=== PATIENT | male | born 1990 | race Caucasian/White ===

== ENCOUNTER 2020-01-30 12:59 | Emergency (ER) | payer SELFPAY ==
[~2020-01-30] VITALS: Ht 172.7 cm; Wt 54.5 kg
[2020-01-30] MEDS ORDERED: AMBIEN5 M1 (13:54)
[2020-01-30] MEDS ORDERED: XANAX0.25 M1 (13:54)
[2020-01-30 15:01] VITALS: BP 137/65
== END 2020-01-30 15:15 | disposition home or self-care (01) ==
LOC: ED 12:59
DX: M25.512 Pain in left shoulder (principal); M54.2 Cervicalgia; M54.9 Dorsalgia, unspecified; F32.9 Major depressive disorder, single episode, unspecified; F41.9 Anxiety disorder, unspecified; F17.210 Nicotine dependence, cigarettes, uncomplicated; Z88.2 Allergy status to sulfonamides; Z88.8 Allergy status to other drugs, medicaments and biological substances; Z79.891 Long term (current) use of opiate analgesic; Z79.899 Other long term (current) drug therapy; W13.2XXA Fall from, out of or through roof, initial encounter; Y92.009 Unspecified place in unspecified non-institutional (private) residence as the place of occurrence of the external cause; Y99.0 Civilian activity done for income or pay

== ENCOUNTER 2020-03-20 03:20 | Emergency (ER) | payer SELFPAY ==
[~2020-03-20 03:20] MED LIST: AMBIEN5 M1; XANAX0.25 M1
[2020-03-20] MEDS ORDERED: XANAX 1MG1 MG PO (03:33)
[2020-03-20 04:23] LABS: HEMATOCRIT 51.4 % (42.0-52.0); HEMOGLOBIN 17.8 g/dL (13.5-18.0); LYMPH# 1.9 (1.50-4.00); MEAN CELL VOLUME 88 fl (78-100); MEAN CORPUSCULAR HEMOGLOBIN 31 pg (27-31); MEAN CORPUSCULAR HGB CONC 35 g/dL (33-37); MEAN PLATELET VOLUME 9.3 fl (7.4-10.4); MONO # 0.8 (0.20-0.80); PLATELET COUNT 327 K/mm3 (130-400); RED BLOOD COUNT 5.83 M/mm3 (4.20-5.60); RED CELL DISTRIBUTION WIDTH 13.8 % (11.5-14.5); WHITE BLOOD COUNT 12.5 K/mm3 (4.8-10.8)
[2020-03-20 04:28] LABS: NEU # 9.8 (1.40-6.50)
[2020-03-20 04:37] LABS: POTASSIUM 4.1 mmol/L (3.5-5.1)
[2020-03-20 04:38] LABS: CALCIUM 9.8 mg/dL (8.3-10.5)
[2020-03-20 04:39] LABS: TOTAL PROTEIN 8.6 g/dL (6.4-8.3)
[2020-03-20 04:41] LABS: TOTAL BILIRUBIN 1.1 mg/dL (0.2-1.2)
[2020-03-20 04:42] LABS: URINE APPEARANCE CLOUDY; URINE BILIRUBIN NEGATIVE (NEGATIVE); URINE BLOOD NEGATIVE (NEGATIVE); URINE COLOR AMBER; URINE GLUCOSE NEGATIVE (NEGATIVE); URINE KETONE NEGATIVE (NEGATIVE); URINE LEUKOCYTE ESTERASE NEGATIVE (NEGATIVE); URINE NITRATE NEGATIVE (NEGATIVE); URINE PROTEIN(semi-quant) TRACE mg/dL (NEGATIVE); URINE UROBILINOGEN NORMAL (NORMAL)
[2020-03-20] MEDS ORDERED: ZOFRAN ODT4 MG PO (07:03)
[2020-03-20] MEDS ORDERED: NORCO 325 MG-51 TA1 PO (07:03)
[2020-03-20 07:15] VITALS: BP 112/86
== END 2020-03-20 07:20 | disposition home or self-care (01) ==
LOC: ED 03:20
PROVIDERS: Family Medicine
DX: K52.9 Noninfective gastroenteritis and colitis, unspecified (principal); F41.9 Anxiety disorder, unspecified; F32.9 Major depressive disorder, single episode, unspecified; F17.200 Nicotine dependence, unspecified, uncomplicated; Z88.5 Allergy status to narcotic agent; Z88.6 Allergy status to analgesic agent; Z88.8 Allergy status to other drugs, medicaments and biological substances
CPT/HCPCS: J0696; J2060; J2270; J3490; J7030; Q9967

== ENCOUNTER 2020-04-01 19:49 | Emergency (ER) | payer SELFPAY ==
[~2020-04-01 19:49] MED LIST changes: +NORCO 325 MG-51 TA1 PO; +XANAX 1MG1 MG PO; +ZOFRAN ODT4 MG PO
[2020-04-01 21:07] LABS: HEMATOCRIT 46.6 % (42.0-52.0); MEAN CELL VOLUME 89 fl (78-100); MEAN CORPUSCULAR HEMOGLOBIN 31 pg (27-31); MEAN CORPUSCULAR HGB CONC 34 g/dL (33-37); MEAN PLATELET VOLUME 9.4 fl (7.4-10.4); PLATELET COUNT 250 K/mm3 (130-400); RED BLOOD COUNT 5.22 M/mm3 (4.20-5.60); RED CELL DISTRIBUTION WIDTH 13.6 % (11.5-14.5); WHITE BLOOD COUNT 11.7 K/mm3 (4.8-10.8)
[2020-04-01 21:10] LABS: LYMPHOCYTE 14 % (20-51); MONOCYTE 7 % (3-10); NEUTROPHILS 78 % (42-75)
[2020-04-01 21:14] LABS: URINE APPEARANCE CLEAR; URINE BILIRUBIN NEGATIVE (NEGATIVE); URINE BLOOD NEGATIVE (NEGATIVE); URINE COLOR YELLOW; URINE GLUCOSE NEGATIVE (NEGATIVE); URINE KETONE 1+ (NEGATIVE); URINE LEUKOCYTE ESTERASE NEGATIVE (NEGATIVE); URINE NITRATE NEGATIVE (NEGATIVE); URINE PROTEIN(semi-quant) 1+ mg/dL (NEGATIVE); URINE UROBILINOGEN NORMAL (NORMAL); URINE WBC 0-1 /hpf (0-3)
[2020-04-01 21:17] LABS: ALBUMIN 4.5 g/dL (3.5-5.0); POTASSIUM 3.8 mmol/L (3.5-5.1)
[2020-04-01 21:19] LABS: CALCIUM 9.1 mg/dL (8.3-10.5)
[2020-04-01 21:20] LABS: TOTAL PROTEIN 7.2 g/dL (6.4-8.3)
[2020-04-01 21:22] LABS: TOTAL BILIRUBIN 0.6 mg/dL (0.2-1.2)
[2020-04-01 22:35] VITALS: BP 135/98
== END 2020-04-01 22:35 | disposition home or self-care (01) ==
LOC: ED 19:49
PROVIDERS: Nurse Practitioner Family
DX: R10.84 Generalized abdominal pain (principal); F41.9 Anxiety disorder, unspecified; F13.10 Sedative, hypnotic or anxiolytic abuse, uncomplicated; F12.10 Cannabis abuse, uncomplicated; F17.200 Nicotine dependence, unspecified, uncomplicated; Z88.5 Allergy status to narcotic agent; Z88.6 Allergy status to analgesic agent; Z88.8 Allergy status to other drugs, medicaments and biological substances
CPT/HCPCS: J1885; J2060; J2550; J7030

== ENCOUNTER 2020-04-11 08:41 | Emergency (ER) | payer SELFPAY ==
[2020-04-11 08:49] VITALS: BP 138/103
[2020-04-11 10:40] LABS: URINE COLOR DK YELLOW
[2020-04-11 10:41] LABS: URINE APPEARANCE HAZY; URINE BILIRUBIN NEGATIVE (NEGATIVE); URINE BLOOD TRACE (NEGATIVE); URINE GLUCOSE NEGATIVE (NEGATIVE); URINE KETONE 1+ (NEGATIVE); URINE LEUKOCYTE ESTERASE TRACE (NEGATIVE); URINE NITRATE NEGATIVE (NEGATIVE); URINE PROTEIN(semi-quant) TRACE mg/dL (NEGATIVE); URINE UROBILINOGEN NORMAL (NORMAL)
[2020-04-11 10:42] LABS: URINE MUCUS PRESENT (NOT PRESENT)
[2020-04-11] MEDS ORDERED: PHENERGAN 25 TA25 MG PO (10:55)
== END 2020-04-11 11:33 | disposition home or self-care (01) ==
LOC: ED 08:41
PROVIDERS: Family Medicine
DX: R10.9 Unspecified abdominal pain (principal); F19.10 Other psychoactive substance abuse, uncomplicated; F41.9 Anxiety disorder, unspecified; F32.9 Major depressive disorder, single episode, unspecified; R82.81 Pyuria; Z88.5 Allergy status to narcotic agent; Z88.6 Allergy status to analgesic agent; Z88.8 Allergy status to other drugs, medicaments and biological substances

== ENCOUNTER 2020-08-15 03:44 | Emergency (ER) | payer SELFPAY ==
[~2020-08-15 03:44] MED LIST changes: +PHENERGAN 25 TA25 MG PO
[2020-08-15] MEDS ORDERED: ZOFRAN ODT4 MG PO ×2 (03:54→13:52)
[2020-08-15 05:03] LABS: BASO # 0.03 (0.02-0.10); EOS # 0.01 (0.04-0.40); EOS % 0.1 % (0.0-4.0); HEMATOCRIT 51.3 % (42.0-52.0); HEMOGLOBIN 17.9 g/dL (13.5-18.0); LYMPH# 1.56 (1.50-4.00); MEAN CELL VOLUME 91 fl (78-100); MEAN CORPUSCULAR HEMOGLOBIN 32 pg (27-31); MEAN CORPUSCULAR HGB CONC 35 g/dL (33-37); MEAN PLATELET VOLUME 9.2 fl (7.4-10.4); MONO # 0.77 (0.20-0.80); NEU # 10.96 (1.40-6.50); PLATELET COUNT 285 K/mm3 (130-400); RED BLOOD COUNT 5.67 M/mm3 (4.20-5.60); RED CELL DISTRIBUTION WIDTH 12.7 % (11.5-14.5); WHITE BLOOD COUNT 13.4 K/mm3 (4.8-10.8)
[2020-08-15 05:10] LABS: ALBUMIN 5.1 g/dL (3.5-5.0); POTASSIUM 3.3 mmol/L (3.5-5.1)
[2020-08-15 05:12] LABS: CALCIUM 10.1 mg/dL (8.3-10.5)
[2020-08-15 05:13] LABS: TOTAL PROTEIN 8.7 g/dL (6.4-8.3)
[2020-08-15 05:15] LABS: TOTAL BILIRUBIN 0.8 mg/dL (0.2-1.2)
[2020-08-15 05:24] LABS: URINE APPEARANCE HAZY; URINE BILIRUBIN NEGATIVE (NEGATIVE); URINE BLOOD TRACE (NEGATIVE); URINE COLOR DK YELLOW; URINE GLUCOSE NEGATIVE (NEGATIVE); URINE KETONE NEGATIVE (NEGATIVE); URINE LEUKOCYTE ESTERASE NEGATIVE (NEGATIVE); URINE NITRATE NEGATIVE (NEGATIVE); URINE PROTEIN(semi-quant) TRACE mg/dL (NEGATIVE); URINE UROBILINOGEN NORMAL (NORMAL)
[2020-08-15 05:25] LABS: URINE MUCUS PRESENT (NOT PRESENT); URINE WBC 0-1 /hpf (0-3)
[2020-08-15 11:07] LABS: GASTROCCULT POSITIVE
[2020-08-15] MEDS ORDERED: NORCO 325 MG-51 TA1 PO (13:52)
[2020-08-15] MEDS ORDERED: PANTOPRAZOLE SO40 MG PO (13:52)
[2020-08-15 14:43] VITALS: BP 102/72
== END 2020-08-15 14:10 | disposition home or self-care (01) ==
LOC: ED 03:44
PROVIDERS: Family Medicine
DX: T39.312A Poisoning by propionic acid derivatives, intentional self-harm, initial encounter (principal); K29.70 Gastritis, unspecified, without bleeding; F41.9 Anxiety disorder, unspecified; F32.9 Major depressive disorder, single episode, unspecified; F17.210 Nicotine dependence, cigarettes, uncomplicated; Z91.14 Patient's other noncompliance with medication regimen
CPT/HCPCS: C9113; J0595; J1885; J2060; J2405; J2550; J3480; J3490; J7030; Q9967

== ENCOUNTER 2020-08-19 13:16 | Emergency (ER) | payer SELFPAY ==
[~2020-08-19 13:16] MED LIST changes: +PANTOPRAZOLE SO40 MG PO
[2020-08-19 13:23] VITALS: BP 136/101
[2020-08-19 14:16] LABS: BASO # 0.03 (0.02-0.10); HEMATOCRIT 48.8 % (42.0-52.0); HEMOGLOBIN 16.5 g/dL (13.5-18.0); LYMPH# 0.84 (1.50-4.00); MEAN CELL VOLUME 91 fl (78-100); MEAN CORPUSCULAR HEMOGLOBIN 31 pg (27-31); MEAN CORPUSCULAR HGB CONC 34 g/dL (33-37); MEAN PLATELET VOLUME 9.4 fl (7.4-10.4); MONO # 0.45 (0.20-0.80); NEU # 9.25 (1.40-6.50); PLATELET COUNT 256 K/mm3 (130-400); RED BLOOD COUNT 5.36 M/mm3 (4.20-5.60); RED CELL DISTRIBUTION WIDTH 12.4 % (11.5-14.5); WHITE BLOOD COUNT 10.6 K/mm3 (4.8-10.8)
[2020-08-19 14:38] LABS: ALBUMIN 4.8 g/dL (3.5-5.0); POTASSIUM 4.3 mmol/L (3.5-5.1); SODIUM 143 mmol/L (136-145)
[2020-08-19 14:39] LABS: CALCIUM 9.7 mg/dL (8.3-10.5)
[2020-08-19 14:41] LABS: GLUCOSE 115 mg/dL (75-110); TOTAL PROTEIN 7.6 g/dL (6.4-8.3)
[2020-08-19 14:42] LABS: CARBON DIOXIDE 21 mmol/L (22-29); TOTAL BILIRUBIN 0.6 mg/dL (0.2-1.2)
[2020-08-19 14:43] LABS: GASTROCCULT NEGATIVE
[2020-08-19 14:46] LABS: AST-SGOT 22 U/L (5-34)
[2020-08-19 14:47] LABS: ALT/SGPT 21 U/L (0-55)
[2020-08-19 14:48] LABS: LIPASE 9 U/L (8-78)
[2020-08-19 14:51] LABS: ALCOHOL IN-HOUSE < 10 mg/dL (<10)
== END 2020-08-19 15:15 | disposition left against medical advice (07) ==
LOC: ED 13:16
PROVIDERS: Nurse Practitioner Family
DX: R10.32 Left lower quadrant pain (principal); R11.2 Nausea with vomiting, unspecified; R51.9 Headache, unspecified; Z88.6 Allergy status to analgesic agent
CPT/HCPCS: J0595; J2405; J7030

== ENCOUNTER 2020-08-25 13:30 | Emergency (ER) | payer SELFPAY ==
[2020-08-25 14:25] LABS: BASO # 0.05 (0.02-0.10); HEMOGLOBIN 16.5 g/dL (13.5-18.0); LYMPH# 1.09 (1.50-4.00); MEAN CELL VOLUME 90 fl (78-100); MEAN CORPUSCULAR HEMOGLOBIN 30 pg (27-31); MEAN CORPUSCULAR HGB CONC 34 g/dL (33-37); MEAN PLATELET VOLUME 9.2 fl (7.4-10.4); MONO # 0.55 (0.20-0.80); NEU # 12.35 (1.40-6.50); PLATELET COUNT 272 K/mm3 (130-400); RED BLOOD COUNT 5.42 M/mm3 (4.20-5.60); RED CELL DISTRIBUTION WIDTH 12.8 % (11.5-14.5); WHITE BLOOD COUNT 14.1 K/mm3 (4.8-10.8)
[2020-08-25 14:34] LABS: ALBUMIN 4.8 g/dL (3.5-5.0); POTASSIUM 3.8 mmol/L (3.5-5.1)
[2020-08-25 14:35] LABS: CALCIUM 10.4 mg/dL (8.3-10.5)
[2020-08-25 14:37] LABS: TOTAL PROTEIN 8.3 g/dL (6.4-8.3)
[2020-08-25 14:38] LABS: TOTAL BILIRUBIN 0.5 mg/dL (0.2-1.2)
[2020-08-25 15:33] LABS: LIPASE 8 U/L (8-78)
[2020-08-25 17:38] LABS: URINE COLOR YELLOW
[2020-08-25 17:39] LABS: URINE APPEARANCE HAZY; URINE BILIRUBIN 2+ (NEGATIVE); URINE BLOOD NEGATIVE (NEGATIVE); URINE GLUCOSE NEGATIVE (NEGATIVE); URINE KETONE 2+ (NEGATIVE); URINE LEUKOCYTE ESTERASE TRACE (NEGATIVE); URINE NITRATE NEGATIVE (NEGATIVE); URINE PROTEIN(semi-quant) 1+ mg/dL (NEGATIVE); URINE UROBILINOGEN NORMAL (NORMAL)
[2020-08-25 17:40] LABS: URINE MUCUS PRESENT (NOT PRESENT)
[2020-08-25] MEDS ORDERED: PROTONIX TR40 M1 PO (17:54)
[2020-08-25] MEDS ORDERED: NORCO 325 MG-51 TA1 PO (17:54)
[2020-08-25] MEDS ORDERED: CARAFATE 1GM1 G PO (17:54)
[2020-08-25] MEDS ORDERED: PEPCID 20MG TAB20 MG PO (17:54)
[2020-08-25] MEDS ORDERED: PHENERGAN 25 TA25 MG PO (17:55)
[2020-08-25 18:08] VITALS: BP 95/51
== END 2020-08-25 18:30 | disposition home or self-care (01) ==
LOC: ED 13:30
PROVIDERS: Physician Assistant
DX: K25.9 Gastric ulcer, unspecified as acute or chronic, without hemorrhage or perforation (principal); Z88.6 Allergy status to analgesic agent; Z88.8 Allergy status to other drugs, medicaments and biological substances
CPT/HCPCS: J2060; J2405; J2550; J3010; J7030; Q9967

== ENCOUNTER 2020-08-28 14:48 | Emergency (ER) | payer SELFPAY ==
[~2020-08-28 14:48] MED LIST changes: +CARAFATE 1GM1 G PO; +PEPCID 20MG TAB20 MG PO; +PROTONIX TR40 M1 PO
[2020-08-28 18:12] LABS: BASO # 0.05 (0.02-0.10); HEMATOCRIT 43.4 % (42.0-52.0); HEMOGLOBIN 15.1 g/dL (13.5-18.0); LYMPH# 0.87 (1.50-4.00); MEAN CELL VOLUME 91 fl (78-100); MEAN CORPUSCULAR HEMOGLOBIN 32 pg (27-31); MEAN CORPUSCULAR HGB CONC 35 g/dL (33-37); MEAN PLATELET VOLUME 8.9 fl (7.4-10.4); MONO # 0.59 (0.20-0.80); NEU # 11.68 (1.40-6.50); PLATELET COUNT 250 K/mm3 (130-400); RED BLOOD COUNT 4.79 M/mm3 (4.20-5.60); RED CELL DISTRIBUTION WIDTH 12.5 % (11.5-14.5); WHITE BLOOD COUNT 13.2 K/mm3 (4.8-10.8)
[2020-08-28 18:21] LABS: ALBUMIN 4.1 g/dL (3.5-5.0)
[2020-08-28 18:22] LABS: POTASSIUM 3.6 mmol/L (3.5-5.1)
[2020-08-28 18:23] LABS: CALCIUM 8.3 mg/dL (8.3-10.5)
[2020-08-28 18:24] LABS: TOTAL PROTEIN 6.8 g/dL (6.4-8.3)
[2020-08-28 18:26] LABS: TOTAL BILIRUBIN 0.5 mg/dL (0.2-1.2)
[2020-08-28 22:55] LABS: URINE APPEARANCE CLOUDY; URINE BILIRUBIN NEGATIVE (NEGATIVE); URINE BLOOD 250 ery/uL (NEGATIVE); URINE COLOR YELLOW; URINE GLUCOSE NEGATIVE (NEGATIVE); URINE KETONE 2+ (NEGATIVE); URINE LEUKOCYTE ESTERASE NEGATIVE (NEGATIVE); URINE MUCUS PRESENT (NOT PRESENT); URINE NITRATE NEGATIVE (NEGATIVE); URINE PROTEIN(semi-quant) NEGATIVE (NEGATIVE); URINE UROBILINOGEN NORMAL (NORMAL)
[2020-08-28] MEDS ORDERED: PERCOCET 325 MG1 TA2 PO (23:21)
[2020-08-28] MEDS ORDERED: ZOFRAN ODT4 MG PO (23:21)
[2020-08-28 23:40] VITALS: BP 104/70
== END 2020-08-28 23:40 | disposition home or self-care (01) ==
LOC: ED 14:48
PROVIDERS: Family Medicine
DX: F41.9 Anxiety disorder, unspecified (principal); K25.9 Gastric ulcer, unspecified as acute or chronic, without hemorrhage or perforation; N20.1 Calculus of ureter; F17.210 Nicotine dependence, cigarettes, uncomplicated; Z88.8 Allergy status to other drugs, medicaments and biological substances; Z79.899 Other long term (current) drug therapy
CPT/HCPCS: C9113; J2060; J2270; J2405; J2550; J7030

== ENCOUNTER 2020-09-02 12:05 | Emergency (ER) | payer SELFPAY ==
[~2020-09-02 12:05] MED LIST changes: +PERCOCET 325 MG1 TA2 PO
[2020-09-02 13:08] LABS: BASO # 0.06 (0.02-0.10); EOS # 0.01 (0.04-0.40); EOS % 0.1 % (0.0-4.0); HEMATOCRIT 52.9 % (42.0-52.0); HEMOGLOBIN 17.6 g/dL (13.5-18.0); LYMPH# 1.91 (1.50-4.00); MEAN CELL VOLUME 92 fl (78-100); MEAN CORPUSCULAR HEMOGLOBIN 31 pg (27-31); MEAN CORPUSCULAR HGB CONC 33 g/dL (33-37); MEAN PLATELET VOLUME 8.9 fl (7.4-10.4); MONO # 0.74 (0.20-0.80); NEU # 10.29 (1.40-6.50); PLATELET COUNT 309 K/mm3 (130-400); RED BLOOD COUNT 5.77 M/mm3 (4.20-5.60); RED CELL DISTRIBUTION WIDTH 12.9 % (11.5-14.5)
[2020-09-02 13:48] LABS: PH-URINE 5.5 (5.0 - 8.0); URINE APPEARANCE HAZY; URINE COLOR YELLOW; URINE GLUCOSE NEGATIVE (NEGATIVE); URINE KETONE 1+ (NEGATIVE); URINE PROTEIN(semi-quant) TRACE mg/dL (NEGATIVE)
[2020-09-02 13:49] LABS: URINE BILIRUBIN NEGATIVE (NEGATIVE); URINE BLOOD TRACE (NEGATIVE); URINE LEUKOCYTE ESTERASE TRACE (NEGATIVE); URINE MUCUS PRESENT (NOT PRESENT); URINE NITRATE NEGATIVE (NEGATIVE); URINE UROBILINOGEN NORMAL (NORMAL); URINE WBC 0-1 /hpf (0-3)
[2020-09-02 16:34] VITALS: BP 131/69
== END 2020-09-02 16:29 | disposition home or self-care (01) ==
LOC: ED 12:05
PROVIDERS: Nurse Practitioner
DX: K25.9 Gastric ulcer, unspecified as acute or chronic, without hemorrhage or perforation (principal); F17.200 Nicotine dependence, unspecified, uncomplicated
CPT/HCPCS: C9113; J0780; J1630; J2060; J2405; J2550; J3360; J7030; Q9967

== ENCOUNTER 2020-09-08 13:52 | Emergency (ER) | payer SELFPAY ==
[2020-09-08 14:29] LABS: BASO # 0.04 (0.02-0.10); EOS # 0.01 (0.04-0.40); EOS % 0.1 % (0.0-4.0); HEMOGLOBIN 16.9 g/dL (13.5-18.0); LYMPH# 1.32 (1.50-4.00); MEAN CELL VOLUME 90 fl (78-100); MEAN CORPUSCULAR HEMOGLOBIN 31 pg (27-31); MEAN CORPUSCULAR HGB CONC 34 g/dL (33-37); MEAN PLATELET VOLUME 8.6 fl (7.4-10.4); MONO # 0.56 (0.20-0.80); NEU # 8.58 (1.40-6.50); PLATELET COUNT 259 K/mm3 (130-400); RED BLOOD COUNT 5.54 M/mm3 (4.20-5.60); RED CELL DISTRIBUTION WIDTH 12.8 % (11.5-14.5); WHITE BLOOD COUNT 10.5 K/mm3 (4.8-10.8)
[2020-09-08 14:43] LABS: ALBUMIN 4.9 g/dL (3.5-5.0)
[2020-09-08 14:46] LABS: TOTAL PROTEIN 8.2 g/dL (6.4-8.3)
[2020-09-08 14:48] LABS: TOTAL BILIRUBIN 0.8 mg/dL (0.2-1.2)
[2020-09-08 15:21] VITALS: BP 148/98
== END 2020-09-08 15:23 | disposition home or self-care (01) ==
LOC: ED 13:52
PROVIDERS: Physician Assistant
DX: R10.9 Unspecified abdominal pain (principal); R11.2 Nausea with vomiting, unspecified; F41.9 Anxiety disorder, unspecified; F17.210 Nicotine dependence, cigarettes, uncomplicated
CPT/HCPCS: J2550

== ENCOUNTER 2021-01-01 02:15 | Emergency (ER) | payer SELFPAY ==
[~2021-01-01] VITALS: Ht 170.2 cm; Wt 54.5 kg
[2021-01-01 02:21] VITALS: BP 139/78
[2021-01-01 03:42] LABS: BASO # 0.06 K/mm3 (0.02-0.10); EOS # 0.01 K/mm3 (0.04-0.40); EOS % 0.1 % (0.0-4.0); HEMATOCRIT 40.8 % (42.0-52.0); HEMOGLOBIN 14.2 g/dL (13.5-18.0); LYMPH# 1.78 K/mm3 (1.50-4.00); MEAN CELL VOLUME 92 fl (78-100); MEAN CORPUSCULAR HEMOGLOBIN 32 pg (27-31); MEAN CORPUSCULAR HGB CONC 35 g/dL (33-37); MEAN PLATELET VOLUME 9.1 fl (7.4-10.4); MONO # 0.88 K/mm3 (0.20-0.80); NEU # 5.12 K/mm3 (1.40-6.50); PLATELET COUNT 236 K/mm3 (130-400); RED BLOOD COUNT 4.43 M/mm3 (4.20-5.60); RED CELL DISTRIBUTION WIDTH 12.6 % (11.5-14.5); WHITE BLOOD COUNT 7.9 K/mm3 (4.8-10.8)
[2021-01-01 03:49] LABS: POTASSIUM 3.7 mmol/L (3.5-5.1); SODIUM 142 mmol/L (136-145)
[2021-01-01 03:50] LABS: CALCIUM 9.1 mg/dL (8.3-10.5)
[2021-01-01 03:51] LABS: GLUCOSE 78 mg/dL (75-110); TOTAL PROTEIN 6.9 g/dL (6.4-8.3)
[2021-01-01 03:52] LABS: CARBON DIOXIDE 23 mmol/L (22-29)
[2021-01-01 03:53] LABS: TOTAL BILIRUBIN 0.7 mg/dL (0.2-1.2)
[2021-01-01 03:56] LABS: AST-SGOT 25 U/L (5-34)
[2021-01-01 03:58] LABS: ALT/SGPT 23 U/L (0-55)
[2021-01-01 04:05] LABS: ACETAMINOPHEN < 1 ug/mL; ALCOHOL IN-HOUSE < 10 mg/dL (<10)
[2021-01-01 04:07] LABS: URINE APPEARANCE CLOUDY; URINE BILIRUBIN NEGATIVE (NEGATIVE); URINE BLOOD TRACE (NEGATIVE); URINE COLOR DK YELLOW; URINE GLUCOSE NEGATIVE (NEGATIVE); URINE KETONE 1+ (NEGATIVE); URINE LEUKOCYTE ESTERASE TRACE (NEGATIVE); URINE NITRATE NEGATIVE (NEGATIVE); URINE PROTEIN(semi-quant) TRACE mg/dL (NEGATIVE); URINE UROBILINOGEN NORMAL (NORMAL)
[2021-01-01 04:08] LABS: URINE MUCUS PRESENT (NOT PRESENT)
== END 2021-01-01 16:17 | disposition hospice, home (50) ==
LOC: ED 02:15
PROVIDERS: Family Medicine
DX: F32.A Depression, unspecified (principal); F17.210 Nicotine dependence, cigarettes, uncomplicated; X83.8XXA Intentional self-harm by other specified means, initial encounter
CPT/HCPCS: J2060

== ENCOUNTER 2021-01-30 21:25 | Emergency (ER) | payer SELFPAY ==
[~2021-01-30] VITALS: Ht 175.3 cm; Wt 54.5 kg
[2021-01-30] MEDS ORDERED: HYDROXYZINE HYD50 M1 PO (21:37)
[2021-01-30] MEDS ORDERED: QUETIAPINE FUM400 MG PO (21:37)
[2021-01-30] MEDS ORDERED: ESZOPICLONE2 MG PO (21:37)
[2021-01-30] MEDS ORDERED: CLINDAMYCIN 300MG PO (22:17)
[2021-01-30] MEDS ORDERED: NORCO 325 MG-51 TA1 PO (22:17)
[2021-01-30 22:31] VITALS: BP 128/80
== END 2021-01-30 22:31 | disposition home or self-care (01) ==
LOC: ED 21:25
DX: K02.9 Dental caries, unspecified (principal); F32.A Depression, unspecified; K05.10 Chronic gingivitis, plaque induced; Z91.51 Personal history of suicidal behavior; Z88.6 Allergy status to analgesic agent; Z79.899 Other long term (current) drug therapy
CPT/HCPCS: J0696

== ENCOUNTER 2021-03-07 00:09 | Emergency (ER) | payer SELFPAY ==
[~2021-03-07] VITALS: Ht 172.7 cm; Wt 59.1 kg
[~2021-03-07 00:09] MED LIST changes: +CLINDAMYCIN 300MG PO; +ESZOPICLONE2 MG PO; +HYDROXYZINE HYD50 M1 PO; +QUETIAPINE FUM400 MG PO
[2021-03-07 01:41] LABS: BASO # 0.05 K/mm3 (0.02-0.10); EOS # 0.01 K/mm3 (0.04-0.40); EOS % 0.1 % (0.0-4.0); HEMOGLOBIN 18.5 g/dL (13.5-18.0); LYMPH# 3.05 K/mm3 (1.50-4.00); MEAN CELL VOLUME 89 fl (78-100); MEAN CORPUSCULAR HEMOGLOBIN 31 pg (27-31); MEAN CORPUSCULAR HGB CONC 35 g/dL (33-37); MONO # 1.36 K/mm3 (0.20-0.80); NEU # 8.13 K/mm3 (1.40-6.50); PLATELET COUNT 348 K/mm3 (130-400); RED BLOOD COUNT 5.98 M/mm3 (4.20-5.60); RED CELL DISTRIBUTION WIDTH 13.6 % (11.5-14.5); WHITE BLOOD COUNT 12.6 K/mm3 (4.8-10.8)
[2021-03-07 01:53] LABS: URINE APPEARANCE HAZY; URINE COLOR YELLOW; URINE PROTEIN(semi-quant) 2+ (NEGATIVE)
[2021-03-07 01:54] LABS: URINE BILIRUBIN 2+ (NEGATIVE); URINE BLOOD NEGATIVE (NEGATIVE); URINE GLUCOSE NEGATIVE (NEGATIVE); URINE KETONE 1+ (NEGATIVE); URINE LEUKOCYTE ESTERASE TRACE (NEGATIVE); URINE MUCUS PRESENT (NOT PRESENT); URINE NITRATE NEGATIVE (NEGATIVE); URINE UROBILINOGEN 1 mg/dL (NORMAL)
[2021-03-07 07:38] LABS: HEMATOCRIT 45.2 % (42.0-52.0); HEMOGLOBIN 15.1 g/dL (13.5-18.0); MEAN PLATELET VOLUME 8.9 fl (7.4-10.4); RED BLOOD COUNT 4.98 M/mm3 (4.20-5.60); RED CELL DISTRIBUTION WIDTH 13.6 % (11.5-14.5); WHITE BLOOD COUNT 7.7 K/mm3 (4.8-10.8)
[2021-03-07 07:48] LABS: POTASSIUM 3.8 mmol/L (3.5-5.1)
[2021-03-07 07:49] LABS: CALCIUM 8.4 mg/dL (8.3-10.5)
[2021-03-07 08:26] LABS: URINE APPEARANCE CLEAR; URINE COLOR YELLOW
[2021-03-07 08:27] LABS: URINE BILIRUBIN NEGATIVE (NEGATIVE); URINE BLOOD NEGATIVE (NEGATIVE); URINE GLUCOSE NEGATIVE (NEGATIVE); URINE KETONE 1+ (NEGATIVE); URINE LEUKOCYTE ESTERASE NEGATIVE (NEGATIVE); URINE NITRATE NEGATIVE (NEGATIVE); URINE PROTEIN(semi-quant) 1+ (NEGATIVE); URINE UROBILINOGEN NORMAL (NORMAL)
[2021-03-07] MEDS ORDERED: BACTRIM DS TAB1 EACH PO (08:47)
[2021-03-07 08:53] VITALS: BP 116/69
== END 2021-03-07 08:54 | disposition home or self-care (01) ==
LOC: ED 00:09
PROVIDERS: Family Medicine
DX: N39.0 Urinary tract infection, site not specified (principal)
CPT/HCPCS: J0696; J2060; J2405; J3010; J7030

== ENCOUNTER 2021-04-09 10:46 | Emergency (ER) | payer OTHER ==
[~2021-04-09] VITALS: Wt 64.0 kg
[~2021-04-09 10:46] MED LIST changes: +BACTRIM DS TAB1 EACH PO
[2021-04-09] MEDS ORDERED: [UNRECOGNIZED DRUG - OTHER] (11:01)
[2021-04-09 11:24] LABS: BASO # 0.05 K/mm3 (0.02-0.10); HEMATOCRIT 45.2 % (42.0-52.0); HEMOGLOBIN 15.5 g/dL (13.5-18.0); LYMPH# 1.56 K/mm3 (1.50-4.00); MEAN CELL VOLUME 90 fl (78-100); MEAN CORPUSCULAR HEMOGLOBIN 31 pg (27-31); MEAN CORPUSCULAR HGB CONC 34 g/dL (33-37); MEAN PLATELET VOLUME 8.6 fl (7.4-10.4); MONO # 0.72 K/mm3 (0.20-0.80); NEU # 5.18 K/mm3 (1.40-6.50); PLATELET COUNT 264 K/mm3 (130-400); RED BLOOD COUNT 5.02 M/mm3 (4.20-5.60); RED CELL DISTRIBUTION WIDTH 13.3 % (11.5-14.5); WHITE BLOOD COUNT 7.5 K/mm3 (4.8-10.8)
[2021-04-09 11:29] LABS: ALBUMIN 4.9 g/dL (3.5-5.0); SODIUM 141 mmol/L (136-145)
[2021-04-09 11:30] LABS: CALCIUM 9.6 mg/dL (8.3-10.5)
[2021-04-09 11:31] LABS: GLUCOSE 93 mg/dL (75-110)
[2021-04-09 11:32] LABS: CARBON DIOXIDE 23 mmol/L (22-29); TOTAL PROTEIN 8.1 g/dL (6.4-8.3)
[2021-04-09 11:33] LABS: TOTAL BILIRUBIN 0.4 mg/dL (0.2-1.2)
[2021-04-09 11:37] LABS: AST-SGOT 24 U/L (5-34)
[2021-04-09 11:38] LABS: ALT/SGPT 23 U/L (0-55)
[2021-04-09 11:39] LABS: ACETAMINOPHEN < 1 ug/mL
[2021-04-09 11:40] LABS: ALCOHOL IN-HOUSE < 10 mg/dL (<10)
[2021-04-09 11:48] LABS: URINE APPEARANCE CLEAR; URINE BILIRUBIN NEGATIVE (NEGATIVE); URINE BLOOD NEGATIVE (NEGATIVE); URINE COLOR YELLOW; URINE GLUCOSE NEGATIVE (NEGATIVE); URINE KETONE NEGATIVE (NEGATIVE); URINE LEUKOCYTE ESTERASE NEGATIVE (NEGATIVE); URINE NITRATE NEGATIVE (NEGATIVE); URINE PROTEIN(semi-quant) 1+ (NEGATIVE); URINE UROBILINOGEN NORMAL (NORMAL); URINE WBC 0-1 /hpf (0-3)
[2021-04-09] MEDS ORDERED: LORAZEPAM0.5 M1 PO (12:20)
[2021-04-09 12:44] VITALS: BP 129/93
== END 2021-04-09 12:45 ==
LOC: ED 10:46
PROVIDERS: Family Medicine
DX: N39.0 Urinary tract infection, site not specified (principal); F15.10 Other stimulant abuse, uncomplicated; F41.9 Anxiety disorder, unspecified; F32.A Depression, unspecified; F17.210 Nicotine dependence, cigarettes, uncomplicated
CPT/HCPCS: J2060

== ENCOUNTER 2021-04-09 22:53 | Emergency (ER) | payer OTHER ==
[~2021-04-09] VITALS: Wt 64.0 kg
[~2021-04-09 22:53] MED LIST changes: +LORAZEPAM0.5 M1 PO; +[UNRECOGNIZED DRUG - OTHER]
[2021-04-10 02:43] VITALS: BP 105/59
== END 2021-04-10 02:37 ==
LOC: ED 22:53
DX: T14.91XA Suicide attempt, initial encounter (principal); F32.A Depression, unspecified; F15.10 Other stimulant abuse, uncomplicated; R10.9 Unspecified abdominal pain; F17.210 Nicotine dependence, cigarettes, uncomplicated; Z20.822 Contact with and (suspected) exposure to COVID-19; Z79.899 Other long term (current) drug therapy; X83.8XXA Intentional self-harm by other specified means, initial encounter
CPT/HCPCS: J2060; J7030